=== PATIENT | male | born 1975 | race Caucasian/White ===

== ENCOUNTER 2018-08-28 16:09 | Emergency (ER) | payer OTHER, SELFPAY ==
[2018-08-28 16:38] VITALS: BP 107/62; PULSE 83; RESP 16; TEMP 36.6; O2SAT 96
--- NOTE | 2018-08-28 18:08 | W.ED.GENAD ---
Discharge Plan Disposition Patient Disposition: HOME Discharge Details Chief Complaint: AnimalBite Clinical Impression: Exposure to bat without known bite, Need for post exposure prophylaxis for rabies Primary Care Provider: Megha Madison ED Provider: Maynor Aguero Home Meds and New Rx's Prescriptions: Continue hydrocortisone [Scalpicin Anti-Itch] 44 ML solution 44 ml Topical DAILY RF: 0 diphenhydramine HCl [Benadryl] 25 MG capsule 25 mg PO PRN RF: 0 ibuprofen 200 MG tablet 200 mg PO PRN RF: 0 fluticasone [Flonase Allergy Relief] 9.9 ML spray,suspension 9.9 ml NS RF: 0 phenylephrine-acetaminophen [Sudafed PE Pressure+Pain] 1 EACH tablet 1 ea PO PRN RF: 0 Discharge Instructions Instructions: Rabies Vaccine (ED) Additional Instructions: You need to have additional vaccination performed on 08/31/18, 09/04/18, and 09/11/18. Please go to infusion lab for next dose. Please contact your primary care physician to arrange follow-up. Return to the ER for any worsening or new concerning symptoms. Referrals: Megha Madison NP [Primary Care Provider] - [facility] General Date/Time Provider Initiated Documentation: 08/28/18 16:48. Related Data Home Medications Medication Instructions Recorded Confirmed diphenhydramine HCl [Benadryl] 25 mg PO PRN 08/18/17 08/28/18 fluticasone [Flonase Allergy 9.9 ml NS 08/18/17 Relief] hydrocortisone [Scalpicin 44 ml TOPICAL DAILY script 08/18/17 08/28/18 Anti-Itch] ibuprofen 200 mg PO PRN 08/18/17 08/28/18 phenylephrine-acetaminophen 1 ea PO PRN 08/18/17 08/28/18 [Sudafed PE Pressure+Pain] Allergies Allergy/AdvReac Type Severity Reaction Status Date / Time mold Allergy Intermediate Wheezing Unverified 08/28/18 16:42 pollen extracts Allergy Intermediate Sinus,itchi Unverified 08/28/18 16:42 ng General Stated Complaint: AnimalBite KOURTNEY: 5 PFSH Family History Father Substance abuse Essential hypertension CAD (coronary artery disease) Neoplasm Mother Mental disorder Asthma Sister No problems noted. Sister No problems noted. Medical History Allergic rhinitis Asthma Atopic dermatitis Social History Smoking/Tobacco Use Status: Never Surgical History Reconstruction of Anterior Cruciate Ligament of Knee Joint (~2011) Course Vital Signs Temperature 36.6 C 08/28/18 16:38 Pulse 83 08/28/18 16:38 Respiratory Rate 16 08/28/18 16:38 Blood Pressure 107/62 08/28/18 16:38 Pulse Oximetry 96 08/28/18 16:38 Temperature 36.6 C 08/28/18 16:38 Temperature Source Skin 08/28/18 16:38 Pulse 83 08/28/18 16:38 Respiratory Rate 16 08/28/18 16:38 Respiratory Effort Non-Labored 08/28/18 16:40 Blood Pressure 107/62 08/28/18 16:38 Pulse Oximetry 96 08/28/18 16:38 Pain Level 0 08/28/18 16:38
--- NOTE | 2018-08-28 18:23 | W.ED.GENAD ---
Discharge Plan Disposition Patient Disposition: HOME Discharge Details Chief Complaint: AnimalBite Clinical Impression: Exposure to bat without known bite, Need for post exposure prophylaxis for rabies Primary Care Provider: Megha Madison ED Provider: Maynor Aguero Home Meds and New Rx's Prescriptions: Continue hydrocortisone [Scalpicin Anti-Itch] 44 ML solution 44 ml Topical DAILY RF: 0 diphenhydramine HCl [Benadryl] 25 MG capsule 25 mg PO PRN RF: 0 ibuprofen 200 MG tablet 200 mg PO PRN RF: 0 fluticasone [Flonase Allergy Relief] 9.9 ML spray,suspension 9.9 ml NS RF: 0 phenylephrine-acetaminophen [Sudafed PE Pressure+Pain] 1 EACH tablet 1 ea PO PRN RF: 0 Discharge Instructions Instructions: Rabies Vaccine (ED) Additional Instructions: You need to have additional vaccination performed on 08/31/18, 09/04/18, and 09/11/18. Please set up with your primary care doctor or return to the ER. Please contact your primary care physician to arrange follow-up. Return to the ER for any worsening or new concerning symptoms. Referrals: Megha Madison, ELGIN [Primary Care Provider] - Discharge Data Discharge Date/Time-TO BE ENTERED AT DEPARTURE: 08/28/18 20:21 Medical Decision Making 43-year-old male here with concern for possible rabies exposure. Dad identified in his living space. No known scratch or bite. Requesting rabies vaccination. Patient provided informed consent to treat for possible rabies exposure. HPI General Date/Time Provider Initiated Documentation: 08/28/18 16:48. Limitations to Documentation: no limitations. Information obtained by: patient. HPI Narrative: 43-year-old male presents with concern for exposure to rabies. Patient notes that he found a bat in his house. No known scratch or bite. Bat was in his living space. Requesting rabies vaccination. Related Data Home Medications Medication Instructions Recorded Confirmed diphenhydramine HCl [Benadryl] 25 mg PO PRN 08/18/17 08/28/18 fluticasone [Flonase Allergy 9.9 ml NS 08/18/17 Relief] hydrocortisone [Scalpicin 44 ml TOPICAL DAILY script 08/18/17 08/28/18 Anti-Itch] ibuprofen 200 mg PO PRN 08/18/17 08/28/18 phenylephrine-acetaminophen 1 ea PO PRN 08/18/17 08/28/18 [Sudafed PE Pressure+Pain] Allergies Allergy/AdvReac Type Severity Reaction Status Date / Time mold Allergy Intermediate Wheezing Unverified 08/28/18 16:42 pollen extracts Allergy Intermediate Sinus,itchi Unverified 08/28/18 16:42 ng General Stated Complaint: AnimalBite KOURTNEY: 5 Review of Systems Integumentary/Breasts Reports as per HPI PFSH Family History Father Substance abuse Essential hypertension CAD (coronary artery disease) Neoplasm Mother Mental disorder Asthma Sister No problems noted. Sister No problems noted. Medical History Allergic rhinitis Asthma Atopic dermatitis Social History Smoking/Tobacco Use Status: Never Surgical History Reconstruction of Anterior Cruciate Ligament of Knee Joint (~2011) Exam Const General: cooperative, healthy appearing, comfortable and no acute distress Course Vital Signs Temperature 36.6 C 08/28/18 16:38 Pulse 83 08/28/18 16:38 Respiratory Rate 16 08/28/18 16:38 Blood Pressure 107/62 08/28/18 16:38 Pulse Oximetry 96 08/28/18 16:38 Temperature 36.6 C 08/28/18 16:38 Temperature Source Skin 08/28/18 16:38 Pulse 83 08/28/18 16:38 Respiratory Rate 16 08/28/18 16:38 Respiratory Effort Non-Labored 08/28/18 16:40 Blood Pressure 107/62 08/28/18 16:38 Pulse Oximetry 96 08/28/18 16:38 Pain Level 0 08/28/18 16:38
--- NOTE | 2018-09-10 06:41 | ED.GENADUL_ITS ---
Discharge Plan Disposition Patient Disposition: HOME Discharge Details Chief Complaint: AnimalBite Clinical Impression: Exposure to bat without known bite, Need for post exposure prophylaxis for rabies Primary Care Provider: Megha Madison ED Provider: Maynor Aguero Home Meds and New Rx's Prescriptions: Continue hydrocortisone [Scalpicin Anti-Itch] 44 ML solution 44 ml Topical DAILY RF: 0 diphenhydramine HCl [Benadryl] 25 MG capsule 25 mg PO PRN RF: 0 ibuprofen 200 MG tablet 200 mg PO PRN RF: 0 fluticasone [Flonase Allergy Relief] 9.9 ML spray,suspension 9.9 ml NS RF: 0 phenylephrine-acetaminophen [Sudafed PE Pressure+Pain] 1 EACH tablet 1 ea PO PRN RF: 0 Discharge Instructions Instructions: Rabies Vaccine (ED) Additional Instructions: You need to have additional vaccination performed on 08/31/18, 09/04/18, and 09/11. Please set up with your primary care doctor or return to the ER. Please contact your primary care physician to arrange follow-up. Return to the ER for any worsening or new concerning symptoms. Referrals: Megha Madison, ELGIN [Primary Care Provider] - Discharge Data Discharge Date/Time-TO BE ENTERED AT DEPARTURE: 08/28/18 20:21 Medical Decision Making 43-year-old male here with concern for possible rabies exposure. Dad identified in his living space. No known scratch or bite. Requesting rabies vaccination. Patient provided informed consent to treat for possible rabies exposure. HPI General Date/Time Provider Initiated Documentation: 08/28/18 16:48 . Limitations to Documentation: no limitations . Information obtained by: patient . HPI Narrative: 43-year-old male presents with concern for exposure to rabies. Patient notes that he found a bat in his house. No known scratch or bite. Bat was in his living space. Requesting rabies vaccination. Related Data Home Medications Medication Instructions Recorded Confirmed diphenhydramine HCl [Benadryl] 25 mg PO PRN 08/18/17 08/28/18 fluticasone [Flonase Allergy 9.9 ml NS 08/18/17 Relief] hydrocortisone [Scalpicin 44 ml TOPICAL DAILY script 08/18/17 08/28/18 Anti-Itch] ibuprofen 200 mg PO PRN 08/18/17 08/28/18 phenylephrine-acetaminophen 1 ea PO PRN 08/18/17 08/28/18 [Sudafed PE Pressure+Pain] Allergies Allergy/AdvReac Type Severity Reaction Status Date / Time mold Allergy Intermediate Wheezing Unverified 08/28/18 16:42 pollen extracts Allergy Intermediate Sinus,itchi Unverified 08/28/18 16:42 ng General Stated Complaint: AnimalBite KOURTNEY: 5 Review of Systems Integumentary/Breasts Reports as per HPI PFSH Family History Father Substance abuse Essential hypertension CAD (coronary artery disease) Neoplasm Mother Mental disorder Asthma Sister No problems noted. Sister No problems noted. Medical History Allergic rhinitis Asthma Atopic dermatitis Social History Smoking/Tobacco Use Status: Never Surgical History Reconstruction of Anterior Cruciate Ligament of Knee Joint (~2011) Exam Const General: cooperative, healthy appearing, comfortable and no acute distress Course Vital Signs Temperature 36.6 C 08/28/18 16:38 Pulse 83 08/28/18 16:38 Respiratory Rate 16 08/28/18 16:38 Blood Pressure 107/62 08/28/18 16:38 Pulse Oximetry 96 08/28/18 16:38 Temperature 36.6 C 08/28/18 16:38 Temperature Source Skin 08/28/18 16:38 Pulse 83 08/28/18 16:38 Respiratory Rate 16 08/28/18 16:38 Respiratory Effort Non-Labored 08/28/18 16:40 Blood Pressure 107/62 08/28/18 16:38 Pulse Oximetry 96 08/28/18 16:38 Pain Level 0 08/28/18 16:38
== END 2018-08-28 20:21 | disposition home or self-care (01) ==
LOC: ER 18:36
PROVIDERS: Emergency Provider Student in an Organized Health Care Education/Training Program; PCP Nurse Practitioner Family
DX: Z20.3 Contact with and (suspected) exposure to rabies (principal); Z29.14 Encounter for prophylactic rabies immune globulin; W55.89XA Other contact with other mammals, initial encounter
CPT/HCPCS: 90471; 96372; 99284; 90675; 99282

== ENCOUNTER 2018-09-12 10:13 | Emergency (ER) | payer OTHER, SELFPAY ==
[2018-09-12 10:26] VITALS: BP 133/87; PULSE 84; RESP 18; TEMP 37; O2SAT 96
--- NOTE | 2018-09-12 10:58 | W.ED.GENAD ---
Discharge Plan Disposition Patient Disposition: HOME Condition: Good Discharge Details Chief Complaint: AnimalBite Clinical Impression: Rabies exposure Primary Care Provider: Megha Madisno ED Provider: Law Magana Home Meds and New Rx's Prescriptions: No Action hydrocortisone [Scalpicin Anti-Itch] 44 ML solution 44 ml Topical DAILY RF: 0 diphenhydramine HCl [Benadryl] 25 MG capsule 25 mg PO PRN RF: 0 ibuprofen 200 MG tablet 200 mg PO PRN RF: 0 fluticasone [Flonase Allergy Relief] 9.9 ML spray,suspension 9.9 ml NS RF: 0 phenylephrine-acetaminophen [Sudafed PE Pressure+Pain] 1 EACH tablet 1 ea PO PRN RF: 0 Discharge Instructions Instructions: Rabies Vaccine (ED) Referrals: Megha Madison, COMMUNICATIONS ASSISTANT [Primary Care Provider] - Return if symptoms worsen Discharge Data Discharge Date/Time-TO BE ENTERED AT DEPARTURE: 09/12/18 11:58 Medical Decision Making Last rabies given today. Advised to return to ED for any other emergent concerns. HPI General Date/Time Provider Initiated Documentation: 09/12/18 10:39. HPI Narrative: 43 y/o male here for last dose of rabies injection. He started the series 15 days ago here in our ED. Treated for exposure to bat without being bitten. He tells me he got the first shot here and the next two in [place] and now needs last dose. Denies any complications or concerns. Related Data Home Medications Medication Instructions Recorded Confirmed diphenhydramine HCl [Benadryl] 25 mg PO PRN 08/18/17 08/28/18 fluticasone [Flonase Allergy 9.9 ml NS 08/18/17 Relief] hydrocortisone [Scalpicin 44 ml TOPICAL DAILY script 08/18/17 08/28/18 Anti-Itch] ibuprofen 200 mg PO PRN 08/18/17 08/28/18 phenylephrine-acetaminophen 1 ea PO PRN 08/18/17 08/28/18 [Sudafed PE Pressure+Pain] Allergies Allergy/AdvReac Type Severity Reaction Status Date / Time mold Allergy Intermediate Wheezing Unverified 08/28/18 16:42 pollen extracts Allergy Intermediate Sinus,itchi Unverified 08/28/18 16:42 ng General Stated Complaint: AnimalBite KOURTNEY: 4 Review of Systems Constitutional Reports system reviewed and no additional complaints, except as docu PFSH Family History Father Substance abuse Essential hypertension CAD (coronary artery disease) Neoplasm Mother Mental disorder Asthma Sister No problems noted. Sister No problems noted. Medical History Allergic rhinitis Asthma Atopic dermatitis Social History Smoking/Tobacco Use Status: Never Surgical History Reconstruction of Anterior Cruciate Ligament of Knee Joint (~2011) Exam Const General: cooperative, healthy appearing, comfortable and no acute distress Nutritional Appearance: average body habitus Orientation: alert, awake and oriented x3 HENMT Head: normal to inspection Ears: hearing grossly normal bilaterally and external ears normal General nose exam: external nose normal Mouth: moist mucous membranes Eyes General: appearance normal, both eyes and all related structures Neck Neck: normal visual inspection Resp Effort & Inspection: normal respiratory effort Skin General skin exam: no rashes or lesions noted (to exposed areas. ) Neuro General: alert, awake, oriented x3, gait normal, tone normal and moves all extremities Cognition: normal cognition Speech: speech normal Gait: normal gait Extrem General: full ROM Psych Appearance: grossly normal and well kempt Speech and Movement: speech and movement normal Mood: congruent mood Affect: normal affect Attitude: cooperative Thought Process: normal Thought Content: normal Insight: insight good Judgment: judgment good Course Vital Signs Temperature 37.0 C 09/12/18 10:26 Pulse 84 09/12/18 10:26 Respiratory Rate 18 09/12/18 10:26 Blood Pressure 133/87 09/12/18 10:26 Pulse Oximetry 96 09/12/18 10:26 Temperature 37.0 C 09/12/18 10:26 Temperature Source Temporal Artery Scan 09/12/18 10:26 Pulse 84 09/12/18 10:26 Respiratory Rate 18 09/12/18 10:26 Respiratory Effort 09/12/18 10:27 Blood Pressure 133/87 09/12/18 10:26 Blood Pressure Position Sitting 09/12/18 10:26 Pulse Oximetry 96 09/12/18 10:26 Oxygen Delivery Method Room Air 09/12/18 10:26 Oxygen Flow Rate 0 09/12/18 10:26 Pain Level 0 09/12/18 10:26
--- NOTE | 2018-09-12 11:03 | ED.GENADUL_ITS ---
Discharge Plan Disposition Patient Disposition: HOME Condition: Good Discharge Details Chief Complaint: AnimalBite Clinical Impression: Rabies exposure Primary Care Provider: Megha Madison ED Provider: Law Magana Home Meds and New Rx's Prescriptions: No Action hydrocortisone [Scalpicin Anti-Itch] 44 ML solution 44 ml Topical DAILY RF: 0 diphenhydramine HCl [Benadryl] 25 MG capsule 25 mg PO PRN RF: 0 ibuprofen 200 MG tablet 200 mg PO PRN RF: 0 fluticasone [Flonase Allergy Relief] 9.9 ML spray,suspension 9.9 ml NS RF: 0 phenylephrine-acetaminophen [Sudafed PE Pressure+Pain] 1 EACH tablet 1 ea PO PRN RF: 0 Discharge Instructions Instructions: Rabies Vaccine (ED) Referrals: Megha Madison, HOUSEKEEPING SUPERVISOR [Primary Care Provider] - Return if symptoms worsen Discharge Data Discharge Date/Time-TO BE ENTERED AT DEPARTURE: 09/12/18 11:58 Medical Decision Making Last rabies given today. Advised to return to ED for any other emergent concerns. HPI General Date/Time Provider Initiated Documentation: 09/12/18 10:39 . HPI Narrative: 43 y/o male here for last dose of rabies injection. He started the series 15 days ago here in our ED. Treated for exposure to bat without being bitten. He tells me he got the first shot here and the next two in [place] and now needs last dose. Denies any complications or concerns. Related Data Home Medications Medication Instructions Recorded Confirmed diphenhydramine HCl [Benadryl] 25 mg PO PRN 08/18/17 08/28/18 fluticasone [Flonase Allergy 9.9 ml NS 08/18/17 Relief] hydrocortisone [Scalpicin 44 ml TOPICAL DAILY script 08/18/17 08/28/18 Anti-Itch] ibuprofen 200 mg PO PRN 08/18/17 08/28/18 phenylephrine-acetaminophen 1 ea PO PRN 08/18/17 08/28/18 [Sudafed PE Pressure+Pain] Allergies Allergy/AdvReac Type Severity Reaction Status Date / Time mold Allergy Intermediate Wheezing Unverified 08/28/18 16:42 pollen extracts Allergy Intermediate Sinus,itchi Unverified 08/28/18 16:42 ng General Stated Complaint: AnimalBite KOURTNEY: 4 Review of Systems Constitutional Reports system reviewed and no additional complaints, except as docu PFSH Family History Father Substance abuse Essential hypertension CAD (coronary artery disease) Neoplasm Mother Mental disorder Asthma Sister No problems noted. Sister No problems noted. Medical History Allergic rhinitis Asthma Atopic dermatitis Social History Smoking/Tobacco Use Status: Never Surgical History Reconstruction of Anterior Cruciate Ligament of Knee Joint (~2011) Exam Const General: cooperative, healthy appearing, comfortable and no acute distress Nutritional Appearance: average body habitus Orientation: alert, awake and oriented x3 HENMT Head: normal to inspection Ears: hearing grossly normal bilaterally and external ears normal General nose exam: external nose normal Mouth: moist mucous membranes Eyes General: appearance normal, both eyes and all related structures Neck Neck: normal visual inspection Resp Effort & Inspection: normal respiratory effort Skin General skin exam: no rashes or lesions noted (to exposed areas. ) Neuro General: alert, awake, oriented x3, gait normal, tone normal and moves all extremities Cognition: normal cognition Speech: speech normal Gait: normal gait Extrem General: full ROM Psych Appearance: grossly normal and well kempt Speech and Movement: speech and movement normal Mood: congruent mood Affect: normal affect Attitude: cooperative Thought Process: normal Thought Content: normal Insight: insight good Judgment: judgment good Course Vital Signs Temperature 37.0 C 09/12/18 10:26 Pulse 84 09/12/18 10:26 Respiratory Rate 18 09/12/18 10:26 Blood Pressure 133/87 09/12/18 10:26 Pulse Oximetry 96 09/12/18 10:26 Temperature 37.0 C 09/12/18 10:26 Temperature Source Temporal Artery Scan 09/12/18 10:26 Pulse 84 09/12/18 10:26 Respiratory Rate 18 09/12/18 10:26 Respiratory Effort 09/12/18 10:27 Blood Pressure 133/87 09/12/18 10:26 Blood Pressure Position Sitting 09/12/18 10:26 Pulse Oximetry 96 09/12/18 10:26 Oxygen Delivery Method Room Air 09/12/18 10:26 Oxygen Flow Rate 0 09/12/18 10:26 Pain Level 0 09/12/18 10:26
[2018-09-12 12:11] VITALS: BP 133/80; PULSE 80; RESP 18; TEMP 36.8; O2SAT 98
== END 2018-09-12 11:58 | disposition home or self-care (01) ==
PROVIDERS: Emergency Provider Nurse Practitioner Family; PCP Nurse Practitioner Family
DX: Z20.3 Contact with and (suspected) exposure to rabies (principal)
CPT/HCPCS: 90471; 90675

== ENCOUNTER 2021-05-17 03:30 | Outpatient (CLI) | payer OTHER, SELFPAY ==
[2021-05-17 10:15] LABS: ALT 36 U/L (16-63); AST 18 U/L (15-37); Albumin 4.3 g/dL (3.4-5.0); Alkaline Phosphatase 79 U/L (46-116); Anion Gap 9.6 mmol/L (3-11); BUN 14 mg/dL (7-18); Bilirubin, Total 0.4 mg/dL (0.2-1.0); CO2 28.4 mmol/L (21.0-32.0); CREATININE 0.9 mg/dL (0.70-1.30); Calcium 9.1 mg/dL (8.5-10.1); Calculated LDL 132 mg/dL (<100); Chloride 103 mmol/L (98-107); Cholesterol 200 mg/dL (<200); Glucose 91 mg/dL (74-106); HDL Cholesterol 41 mg/dL (40-60); Potassium 4.3 mmol/L (3.5-5.1); Sodium 141 mmol/L (136-145); Total Protein 7.7 g/dL (6.4-8.2); Triglyceride 137 mg/dL (<150)
[2021-05-18 09:22] LABS: Hepatitis C Ab w Rflx HCV PCR Negative (Negative)
[2021-05-18 09:43] LABS: HIV-1/2 Ag & Ab Screen Negative (Negative)
== END 2021-05-17 03:31 | disposition home or self-care (01) ==
LOC: LBO 03:30
PROVIDERS: PCP Nurse Practitioner Family; Visit Provider Nurse Practitioner Family
DX: E78.5 Hyperlipidemia, unspecified (principal); Z13.1 Encounter for screening for diabetes mellitus; Z11.59 Encounter for screening for other viral diseases; Z11.4 Encounter for screening for human immunodeficiency virus [HIV]
CPT/HCPCS: 36415; 80053; 80061; 86803; 87389

== ENCOUNTER 2022-09-13 01:16 | Outpatient (CLI) | payer OTHER, SELFPAY ==
[2022-09-13 09:31] LABS: Abs Immature Grans 0.01 10^3/uL (0.0-0.06); Absolute Basophil Count 0.03 10^3/uL (0.0-0.2); Absolute Eosinophil Count 0.29 10^3/uL (0.0-0.7); Absolute Monocyte Count 0.49 10^3/uL (0.1-0.8); Basophils % 0.6; Eosinophils % 5.4; HGB 15.3 g/dL (13.5-17.5); Immature Grans % 0.2; Lymphocytes % 33.2; MCH 30.1 pg (27.0-33.0); MCHC 35.6 % (32.0-36.0); MCV 85 fL (80-95); MPV 9.5 fL (8.0-11.0); Neutrophils % 51.6; Platelet Count 223 10^3/uL (130-400); RBC 5.08 10^6/uL (4.36-5.78); RDW 11.9 % (11.8-14.1); RDW-SD 36.7 fL; WBC 5.42 10^3/uL (4.4-10.8)
[2022-09-13 10:13] LABS: ALT 84 U/L (16-63); AST 22 U/L (15-37); Albumin 4.2 g/dL (3.4-5.0); Alkaline Phosphatase 72 U/L (46-116); Anion Gap 7.2 mmol/L (3-11); BUN 15 mg/dL (7-18); Bilirubin, Total 0.5 mg/dL (0.2-1.0); CO2 28.8 mmol/L (21.0-32.0); CREATININE 0.9 mg/dL (0.70-1.30); Calcium 9.1 mg/dL (8.5-10.1); Calculated LDL 156 mg/dL (<100); Chloride 102 mmol/L (98-107); Cholesterol 228 mg/dL (<200); Glucose 91 mg/dL (74-106); HDL Cholesterol 44 mg/dL (40-60); Sodium 138 mmol/L (136-145); TSH (W/Ref FT4) 1.52 uIU/mL (0.36-3.74); Total Protein 8.4 g/dL (6.4-8.2); Triglyceride 142 mg/dL (<150)
== END 2022-09-13 01:17 | disposition home or self-care (01) ==
LOC: LBO 01:16
PROVIDERS: PCP Nurse Practitioner Family; Visit Provider Nurse Practitioner Family
DX: R53.83 Other fatigue (principal); Z00.00 Encounter for general adult medical examination without abnormal findings; Z13.1 Encounter for screening for diabetes mellitus; E78.5 Hyperlipidemia, unspecified
CPT/HCPCS: 36415; 80053; 80061; 84443; 85025

== ENCOUNTER 2022-11-12 03:31 | Outpatient (CLI) | payer OTHER, SELFPAY ==
[2022-11-12 08:36] LABS: ALT 51 U/L (16-63); AST 22 U/L (15-37); Albumin 4.3 g/dL (3.4-5.0); Alkaline Phosphatase 71 U/L (46-116); Anion Gap 6.2 mmol/L (3-11); BUN 16 mg/dL (7-18); Bilirubin, Total 0.5 mg/dL (0.2-1.0); CO2 29.8 mmol/L (21.0-32.0); Calcium 9.3 mg/dL (8.5-10.1); Chloride 103 mmol/L (98-107); Estimated GFR 92.26 (mL/min/1.73m2); Glucose 96 mg/dL (74-106); Potassium 4.5 mmol/L (3.5-5.1); Sodium 139 mmol/L (136-145); Total Protein 7.9 g/dL (6.4-8.2)
== END 2022-11-12 03:32 | disposition home or self-care (01) ==
LOC: LBO 03:31
PROVIDERS: Absent Provider Nurse Practitioner Family; PCP Nurse Practitioner Family; Referring Provider Nurse Practitioner Family; Visit Provider Nurse Practitioner Family
DX: R79.89 Other specified abnormal findings of blood chemistry (principal)
CPT/HCPCS: 36415; 80053

== ENCOUNTER 2023-10-01 02:56 | Outpatient (CLI) | payer BC, SELFPAY ==
[2023-10-01 09:06] LABS: Calculated LDL 156 mg/dL (<100); Cholesterol 227 mg/dL (<200); HDL Cholesterol 45 mg/dL (40-60); Triglyceride 131 mg/dL (<150)
== END 2023-10-01 02:57 | disposition home or self-care (01) ==
LOC: LBO 02:56
PROVIDERS: PCP Family Medicine; Visit Provider Family Medicine
DX: E78.5 Hyperlipidemia, unspecified (principal)
CPT/HCPCS: 36415; 80061